=== PATIENT | female | born 1965 | race Caucasian/White ===

== ENCOUNTER 2023-08-07 07:46 | Emergency (ER) | payer OTHER, SELFPAY ==
--- NOTE | 2023-08-07 07:57 | W.ED.NAVMDI ---
HPI - Nausea/Vomiting/Diarrhea General: Chief complaint: Headache Stated complaint: n/v Time Seen by Provider: 08/07/23 07:52 Source: patient Mode of arrival: ambulatory History of Present Illness: 58-year-old female presents to the emergency room complaining of nausea and vomiting x1 this morning, and multiple episodes of diarrhea.. Woke up this morning with the nausea and vomiting. She previously had this he is traveling through the area. She has been eating a very different diet than normal because of her travels. She denies any fever. No hematemesis cough cramps no hematochezia melena coffee-ground emesis. No dysuria urgency or frequency. No previous abdominal surgeries. MD elicited complaint: nausea and vomiting Onset (ago): hour(s) Description of vomiting: food contents and watery Associated nausea: Yes Associated abdominal pain: No Exacerbating factors: none Relieving factors: none Associated symtoms: Reports anorexia and nausea; Denies altered mental status, anxiety, bloating, change in vision, chest pain, cough, diaphoresis, decreased urine output, dizziness, dysuria, epistaxis, fatigue, fecal incontinence, fevers/chills, headache(s), malaise, myalgias, numbness, palpitations, rash, short of breath, syncope, tenesmus, tinnitus or weakness Review of Systems Const: Denies: fever(s), chills, fatigue, malaise or diaphoresis Eyes: Denies: change in vision ENMT: Denies: tinnitus or epistaxis Card: Denies: chest pain, palpitations or syncope Resp: Denies: dyspnea, productive cough or non-productive cough GI: Reports: nausea, vomiting and diarrhea; Denies: abdominal pain, hematemesis, coffee ground emesis, bloating, fecal incontinence, hematochezia, melena or mucus in stool : Denies: flank pain, dysuria, urinary frequency or urinary urgency Skin/Breast: Denies: rash or pruritus Neuro: Denies: headache(s) or dizziness Psych: Denies: anxiety Physical Exam Const: COMMON NORMALS: no acute distress EXAM LIMITATIONS: no altered mental status GENERAL APPEARANCE: cooperative and comfortable ORIENTATION/CONSCIOUSNESS: Yes awake, Yes oriented to person, Yes oriented to place and Yes oriented to time HENMT: COMMON NORMALS: normocephalic, atraumatic and hearing grossly normal bilaterally HEAD & SCALP: normocephalic and atraumatic Resp: COMMON NORMALS: normal respiratory effort, No retractions, No use of accessory muscles and clear to auscultation bilaterally AUSCULTATION: clear to auscultation bilaterally Cardio: COMMON NORMALS: regular rate, regular rhythm and No murmurs present (Cardio) RATE: regular rate RHYTHM: regular rhythm GI: COMMON NORMALS: Soft to palpation and No hepatosplenomegaly present AUSCULTATION: Yes normoactive bowel sounds PALPATION: Yes Soft to palpation, No Tenderness to palpation present (GI), No Guarding due to palpation present (GI) and Yes No hepatosplenomegaly present Extremity: COMMON NORMALS: normal to inspection, capillary refill normal, no clubbing, cyanosis or edema, no calf tenderness and no pedal edema Neuro: SENSORIUM/ORIENTATION: Yes oriented to person, Yes oriented to place and Yes oriented to time Skin: COMMON NORMALS: no rashes or lesions noted GENERAL SKIN EXAM: no rashes or lesions noted Course Vital Signs: Vital signs: Vital Signs Temperature 97.9 F 08/07/23 08:02 Pulse Rate 70 08/07/23 08:05 Respiratory Rate 16 08/07/23 08:02 Blood Pressure 131/87 08/07/23 08:02 Pulse Oximetry 100 08/07/23 08:05 Oxygen Delivery Me thod Room Air 08/07/23 08:05 MDM - Nausea/Vomiting/Diarrhea Medical Decision Making Symptoms improved after antiemetics and ketorolac along with fluids. We will discharge patient with Lomotil to use as needed promethazine to use as needed clear liquid diet for 24 to 48 hours and advance as tolerated Medical Records I reviewed the patient's medical records. Lab Data I reviewed the patient's lab results. 08/07/23 08:10 08/07/23 08:10 Laboratory Results WBC 7.17 10^3/uL (3.29-11.43) 08/07/23 08:10 RBC 4.68 10^6/uL (3.85-5.65) 08/07/23 08:10 Hgb 14.70 g/dL (11.27-16.99) 08/07/23 08:10 Hct 43.3 % (36-47) 08/07/23 08:10 MCV 92.5 fl (85-98) 08/07/23 08:10 MCH 31.4 pg (27-33) 08/07/23 08:10 MCHC 33.9 g/dL (30-55) 08/07/23 08:10 RDW 12.6 % (12.1-15.1) 08/07/23 08:10 Plt Count 243 10^3/cmm (157-399) 08/07/23 08:10 MPV 9.7 fL (7.4-10.4) 08/07/23 08:10 Neut % (Auto) 81.2 % 08/07/23 08:10 Lymph % (Auto) 14.2 % 08/07/23 08:10 [place] % (Auto) 3.6 % 08/07/23 08:10 Eos % (Auto) 0.3 % 08/07/23 08:10 Baso % (Auto) 0.6 % 08/07/23 08:10 Neut # (Auto) 5.82 10^3/uL (1.8-7.7) 08/07/23 08:10 Lymph # (Auto) 1.0 10^3/uL (0.8-4.8) 08/07/23 08:10 [place] # (Auto) 0.3 10^3/uL (0.2-0.9) 08/07/23 08:10 Eos # (Auto) 0.0 10^3/uL (0.0-0.8) 08/07/23 08:10 Baso # (Auto) 0.0 10^3/uL (0.0-0.1) 08/07/23 08:10 Nucleated RBC % (auto) 0 % 08/07/23 08:10 Nucleated RBCs # 0.0 /100WBC 08/07/23 08:10 Sodium 140 mmol/L (136-145) 08/07/23 08:10 Potassium 3.8 mmol/L (3.5-5.1) 08/07/23 08:10 Chloride 102 mmol/L (98-107) 08/07/23 08:10 Carbon Dioxide 28 mmol/L (22-29) 08/07/23 08:10 Anion Gap 13.8 (5-19) 08/07/23 08:10 BUN 13 mg/dL (6-20) 08/07/23 08:10 Creatinine 0.8 mg/dL (0.5-0.9) 08/07/23 08:10 GFR Calculation 74.2 mL/min (90-130) L 08/07/23 08:10 Glucose 112 mg/dL (65-115) 08/07/23 08:10 Calculated Osmolality 291 mOsm/kg (285-295) 08/07/23 08:10 Calcium 9.2 mg/dL (8.5-10.5) 08/07/23 08:10 Total Bilirubin 0.3 mg/dL (0.15-1.2) 08/07/23 08:10 AST 17 U/L (0-32) 08/07/23 08:10 ALT 17 U/L (0-33) 08/07/23 08:10 Alkaline Phosphatase 72 U/L (35-105) 08/07/23 08:10 Total Protein 6.4 g/dL (6.6-8.7) L 08/07/23 08:10 Albumin 4.2 g/dL (3.5-5.2) 08/07/23 08:10 Globulin 2.2 g/dL (1.3-4.6) 08/07/23 08:10 Urine Color Yellow (Yellow) 08/07/23 08:36 Urine Appearance Clear (CLEAR) 08/07/23 08:36 Urine pH 8 (5-7) H 08/07/23 08:36 Ur Specific [place] 1.015 (1.005-1.030) 08/07/23 08:36 Urine Protein Neg (Negative) 08/07/23 08:36 Urine Glucose (UA) Norm (Normal) 08/07/23 08:36 Urine Ketones Negative (Negative) 08/07/23 08:36 Urine Blood Neg (Negative) 08/07/23 08:36 Urine Nitrate Negative (Negative) 08/07/23 08:36 Urine Bilirubin Neg (Negative) 08/07/23 08:36 Prot Sulfosalicylic Acd Negative (Negative) 08/07/23 08:36 Urine Urobilinogen Norm mg/dL (Negative) 08/07/23 08:36 Ur Leukocyte Esterase Negative (Negative) 08/07/23 08:36 No radiology studies performed this visit Discharge Plan Discharge Patient Disposition: Home Clinical Impression: Gastroenteritis Condition: Stable Prescriptions: New Lomotil 2.5-0.025 mg tablet 1 tab PO Q6H PRN (Reason: diarrhea) Qty: 20 0RF promethazine 25 mg tablet 25 mg PO Q6H PRN (Reason: nausea and vomiting) Qty: 20 0RF No Action Tylenol Ex Str Rapid Release 500 mg Tablet 500 mg PO Q6H PRN (Reason: Pain) Discharge Orders: Discharge ED (Routine); Ordered 08/07/23 Ordered By: Armando Dai Discharge Diet: Usual diet Discharge Activity: Increase activity as tolerated Patient Instructions: Opioid Safety, Pain Management Coding Level of Care Code ED Dieing Out Machine Operator for Judy Diehl
[2023-08-07 08:02] VITALS: BP 131/87; PULSE 76; RESP 16; TEMP 36.6; O2SAT 100; BMI 23.1
[2023-08-07 08:05] VITALS: PULSE 70; O2SAT 100
--- NOTE | 2023-08-07 08:09 | PC.PHAR ---
PT STATES SHE TAKES NO RX MEDICATIONS-EXT SHOWS A VAGIFEM 10MCG FILLED 03/24/23 28D/S PT STATES SHE NO LONGER USES-STATES ONLY TAKES TYLENOL PRN
[2023-08-07 08:13] LABS: Basophils % 0.6 %; Eosinophils % 0.3 %; Hematocrit 43.3 % (36-47); Lymphocytes % 14.2 %; Mean Corpuscular HGB Conc 33.9 g/dL (30-55); Mean Corpuscular Hemoglobin 31.4 pg (27-33); Mean Corpuscular Volume 92.5 fl (85-98); Mean Platelet Volume 9.7 fL (7.4-10.4); Monocytes # 0.3 10^3/uL (0.2-0.9); Monocytes % 3.6 %; Neutrophils # 5.82 10^3/uL (1.8-7.7); Neutrophils % 81.2 %; Nucleated Red Blood Cells % 0 %; Platelet Count 243 10^3/cmm (157-399); Red Blood Count 4.68 10^6/uL (3.85-5.65); Red Cell Distribution Width 12.6 % (12.1-15.1); White Blood Count 7.17 10^3/uL (3.29-11.43)
[2023-08-07] MEDS: ondansetron 2 mg/ML SDV 2 mL 4 MG IVP (08:15)
[2023-08-07] MEDS: sodium chloride 0.9% 1,000 ML 999 ML IV (08:15)
[2023-08-07] MEDS: ketorolac 30 mg/mL INJ IVP (08:21)
[2023-08-07 08:45] LABS: Add Urine Microscopic? NO; Charge for UA Resulting for Rev
[2023-08-07 08:47] LABS: Alanine Aminotransferase 17 U/L (0-33); Albumin Level 4.2 g/dL (3.5-5.2); Alkaline Phosphatase 72 U/L (35-105); Anion Gap 13.8 (5-19); Aspartate Amino Transferase 17 U/L (0-32); Blood Urea Nitrogen 13 mg/dL (6-20); Calcium 9.2 mg/dL (8.5-10.5); Carbon Dioxide 28 mmol/L (22-29); Chloride 102 mmol/L (98-107); Globulin 2.2 g/dL (1.3-4.6); Glomerular Filtration Rate 74.2 mL/min (90-130); Glucose 112 mg/dL (65-115); Osmolality Calculated 291 mOsm/kg (285-295); Potassium 3.8 mmol/L (3.5-5.1); Sodium 140 mmol/L (136-145); Total Bilirubin 0.3 mg/dL (0.15-1.2); Total Protein 6.4 g/dL (6.6-8.7)
[2023-08-07 08:54] LABS: Bilirubin Urine Neg (Negative); Blood Urine Neg (Negative); Glucose Urine UA Norm (Normal); Ketones Urine Negative (Negative); Leukocyte Esterase Urine Negative (Negative); Nitrate Urine Negative (Negative); Protein Urine Neg (Negative); Specific Gravity, Urine 1.015 (1.005-1.030); Sulfosalicylic Acid Urine Negative (Negative); Urine Appearance Clear (CLEAR); Urine Color Yellow (Yellow); Urobilinogen Urine Norm (Negative); pH Urine 8 (5-7)
[2023-08-07 09:11] VITALS: BP 140/80; PULSE 75; O2SAT 100
== END 2023-08-07 09:12 | disposition home or self-care (01) ==
PROVIDERS: Emergency Provider Family Medicine
DX: K52.9 Noninfective gastroenteritis and colitis, unspecified (principal)
CPT/HCPCS: 80053; 81003; 85025; 96361; 96374; 96375; 99284; J1885; J2405; J7030